=== PATIENT | female | born 1955 | race African-American/Black ===

== ENCOUNTER 2019-01-16 10:11 | Inpatient (IN) | payer OTHER ==
[2019-01-07 12:04] VITALS: BMI 35.1
[~2019-01-16 10:11] MED LIST: CEFAZOLIN 2 GM in DEXTROSE 5%-WATER - 50 ML IVPB ONE; TRANEXAMIC ACID 1000 MG/10 ML VIAL IVPUSH ONE; VANCOMYCIN 1,000 MG in DEXTROSE 5%-WATER - 250 ML IVPB ONE
[2019-01-16] MEDS ORDERED: BUPIVACAINE LIPOSOME/PF (EXPAREL) 266 MG/20 ML VIAL ONE (11:59)
[2019-01-16] MEDS ORDERED: MIDAZOLAM HCL 2 MG/2 ML SINGLE DOSE VIAL ONE ×4 (11:59→15:06)
[2019-01-16] MEDS ORDERED: BUPIVACAINE HCL/PF (5 MG/ML) 30 ML VIAL IJ ONE (11:59)
[2019-01-16] MEDS ORDERED: KETAMINE HCL 200 MG/20 ML VIAL ONE (13:44)
[2019-01-16] MEDS ORDERED: BENZOIN/ALOE VERA/STORAX/TOLU 58 ML BOTTLE ONE (14:22)
[2019-01-16] MEDS ORDERED: ceFAZolin SODIUM 1 GM VIAL ONE (15:25)
[2019-01-16] MEDS ORDERED: ALBUTEROL SO4 8 GM HFA INHALER IH PRN (16:01)
--- NOTE | 2019-01-16 16:01 | PN ---
Progress Note (short form) - Note Progress Note: 63F s/p LEFT total knee replacement POD #0. -Pain control. -DVT PPx: -Chemical: Aspirin 81mg PO BID x 6 weeks post-op. -Mechanical: SATISH's, SCD's. -Incentive spirometry q15 min. -PT/OT/Rehab, OOB. -WBAT LLE. -Post-op Ancef x 2 doses. -f/u post-op TOV: 8 hours max. -f/u AM labs. -f/u drain output. -Diet as tolerated. -Care per medical hospitalist team. -Discharge planning: f/u [facility] [place] Office Monday01/25/2019; call for appointment . -Will follow. Tj Lima MD (Orthopaedic Surgery).
[2019-01-16] MEDS ORDERED: MAG HYDROX/AL HYDROX/SIMETH 30 ML UNIT-DOSE CUP PO PRN (16:02)
[2019-01-16] MEDS ORDERED: MAGNESIUM HYDROX 2400MG/30ML ORAL SUSPENSION 30 ML CUP PO PRN (16:02)
[2019-01-16] MEDS ORDERED: ONDANSETRON 4 MG/2 ML VIAL IVPUSH PRN ×2 (16:02→16:10)
--- NOTE | 2019-01-16 16:07 | OP ---
Operative Note - Note: Operative Date: 01/16/19 Pre-Operative Diagnosis: Left knee DJD in setting of RA Operation: Left TKA Implants: Nitin Triathlon. Femur - 3. Tibia - 4, 50mm stem. Poly - 13mm, TS. Patella - 27mm, symmetric Post-Operative Diagnosis: Same as Pre-op Surgeon: Tj Lima Compliance Specialist: Asher Lima Anesthesiologist/ACCOUNTS RECEIVABLE ANALYST: Harman Ruiz Anesthesia: Spinal Specimens Removed: Bone, soft tissue Estimated Blood Loss (mls): 0 Fluid Volume Replaced (mls): 1,200 (Crystalloid) Operative Report Dictated: Yes
[2019-01-16] MEDS ORDERED: PROMETHAZINE HCL 25 MG/1 ML VIAL IVPUSH PRN (16:10)
[2019-01-16] MEDS ORDERED: HYDROmorphone HCL CARPU-JECT 1 MG/1 ML DISP.SYRIN IVPUSH PRN (16:10)
[2019-01-16] MEDS ORDERED: LACTATED RINGERS SOLUTION 1,000 ML IV SCH ×2 (16:15)
[2019-01-16] MEDS ORDERED: ACETAMINOPHEN INJECTION 100 ML IVPB ONE (16:50)
[2019-01-16] MEDS: ACETAMINOPHEN 1000 MG/100 ML VIAL (NON FORMULARY) IVPB ONE ×2 (16:50→18:25)
--- NOTE | 2019-01-16 18:35 | CONSULT ---
Consultation: REQUESTING PROVIDER: Dr. Tj Lima CONSULT REQUEST: We have been asked to medically evaluate this patient perioperatively. HISTORY OF PRESENT ILLNESS: 63 year-old female with a PMH significant for HTN, Type II NIDDM, now s/p left total knee replacement on 01/[address] Lima. REVIEW OF SYSTEMS: CONSTITUTIONAL: Absent: fever, chills, diaphoresis, generalized weakness, malaise, loss of appetite, weight change HEENT: Absent: rhinorrhea, nasal congestion, throat pain, throat swelling, difficulty swallowing, mouth swelling, ear pain, eye pain, visual changes CARDIOVASCULAR: Absent: chest pain, syncope, palpitations, irregular heart rate, lightheadedness , peripheral edema RESPIRATORY: Absent: cough, shortness of breath, dyspnea with exertion, orthopnea, wheezing, stridor, hemoptysis GASTROINTESTINAL: Absent: abdominal pain, abdominal distension, nausea, vomiting, diarrhea, constipation, melena, hematochezia GENITOURINARY: Absent: dysuria, frequency, urgency, hesitancy, hematuria, flank pain, genital pain MUSCULOSKELETAL: Absent: myalgia, arthralgia, joint swelling, back pain, neck pain SKIN: Absent: rash, itching, pallor HEMATOLOGIC/IMMUNOLOGIC: Absent: easy bleeding, easy bruising, lymphadenopathy, frequent infections ENDOCRINE: Absent: unexplained weight gain, unexplained weight loss, heat intolerance, cold intolerance NEUROLOGIC: Absent: headache, focal weakness or paresthesias, dizziness, unsteady gait, seizure, mental status changes, bladder or bowel incontinence PSYCHIATRIC: Absent: anxiety, depression, suicidal or homicidal ideation, hallucinations. PHYSICAL EXAMINATION Vital Signs - 24 hr 01/16/19 01/16/19 01/16/19 11:05 15:59 16:00 Temperature 98.9 F 97.7 F Pulse Rate 108 H 94 H 91 H Respiratory 20 16 16 Rate Blood Pressure 121/75 118/78 108/64 O2 Sat by Pulse 97 99 98 Oximetry (%) 01/16/19 01/16/19 01/16/19 16:05 16:10 16:15 Temperature Pulse Rate 88 90 88 Respiratory 16 16 16 Rate Blood Pressure 109/61 111/51 L 116/59 L O2 Sat by Pulse 98 97 97 Oximetry (%) 01/16/19 01/16/19 01/16/19 16:30 16:45 17:00 Temperature Pulse Rate 87 84 83 Respiratory 17 16 16 Rate Blood Pressure 115/57 L 112/50 L 115/57 L O2 Sat by Pulse 96 96 97 Oximetry (%) 01/16/19 01/16/19 01/16/19 17:15 17:30 17:45 Temperature Pulse Rate 86 84 83 Respiratory 17 17 18 Rate Blood Pressure 110/59 L 115/56 L 110/59 L O2 Sat by Pulse 96 97 98 Oximetry (%) 01/16/19 17:51 Temperature Pulse Rate 83 Respiratory 18 Rate Blood Pressure 110/59 L O2 Sat by Pulse Oximetry (%) GENERAL: Awake, alert, and fully oriented, in no acute distress. HEAD: Normal with no signs of trauma. EYES: Pupils equal, round and reactive to light, extraocular movements intact, sclera anicteric, conjunctiva clear. No lid lag. EARS, NOSE, THROAT: Ears normal, nares patent, oropharynx clear without exudates. Moist mucous membranes. NECK: Normal range of motion, supple without lymphadenopathy, JVD, or masses. LUNGS: Breath sounds equal, clear to auscultation bilaterally. No wheezes, and no crackles. No accessory muscle use. HEART: Regular rate and rhythm, normal S1 and S2 without murmur, rub or gallop. ABDOMEN: Soft, nontender, not distended, normoactive bowel sounds, no guarding, no rebound, no masses. No hepatomegaly or splenomegaly. MUSCULOSKELETAL: Normal range of motion at all joints. No bony deformities or tenderness. No CVA tenderness. UPPER EXTREMITIES: 2+ pulses, warm, well-perfused. No cyanosis. No clubbing. Cap refill <2 seconds. No peripheral edema. LOWER EXTREMITIES: 2+ pulses, warm, well-perfused. No calf tenderness. No peripheral edema. NEUROLOGICAL: Cranial nerves II-XII intact. Normal speech. Normal gait. PSYCHIATRIC: Cooperative. Good eye contact. Appropriate mood and affect. SKIN: Warm, dry, normal turgor, no rashes or lesions noted. Laboratory Results - last 24 hr 01/16/19 10:56 POC Glucometer 117 Active Medications Generic Name Dose Route Start Last Admin Trade Name Freq PRN Reason Stop Dose Admin Al Hydroxide/Mg Hydroxide 30 ml 01/16/19 16:02 Mylanta Oral Suspension - PO Q4H PRN DYSPEPSIA Albuterol Sulfate 2 puff 01/16/19 16:01 Ventolin Hfa Inhaler - IH Q4H PRN SHORTNESS OF BREATH/WHEEZING Aspirin 81 mg 01/16/19 22:00 Asa - PO BID [facility] Fentanyl 50 mcg 01/16/19 16:10 Sublimaze Injection - IVPUSH [id number] PRN PAIN-PACU ORDER X 4 DOSES ONLY Folic Acid 1 mg 01/17/19 10:00 Folic Acid - PO DAILY [facility] Hydromorphone HCl 0.5 mg 01/16/19 16:10 Dilaudid Injection - IVPUSH [id number] PRN PAIN-PACU ORDER X 4 DOSES ONLY Cefazolin Sodium/Dextrose 2 gm in 50 mls @ 100 mls/hr 01/16/19 22:00 Ancef 2 Gm Premixed Ivpb - IVPB 01/17/19 21:59 Q8H [facility] Lactated Ringer's 1,000 mls @ 125 mls/hr 01/16/19 16:15 01/16/19 18:25 Lactated Ringers Solution IV 01/17/19 06:00 Not Given ASDIR [facility] Lactated Ringer's 1,000 mls @ 125 mls/hr 01/16/19 16:15 01/16/19 18:25 Lactated Ringers Solution IV Not Given ASDIR [facility] Losartan Potassium 50 mg 01/17/19 10:00 Cozaar - PO DAILY [facility] Magnesium Hydroxide 30 ml 01/16/19 16:02 Milk Of Magnesia - PO PRN PRN CONSTIPATION Metformin HCl 500 mg 01/17/19 07:00 Glucophage - PO AM [facility] Ondansetron HCl 4 mg 01/16/19 16:10 Zofran Injection IVPUSH Q6H PRN NAUSEA AND/OR VOMITING Pantoprazole Sodium 40 mg 01/17/19 10:00 Protonix - PO DAILY [facility] Pantoprazole Sodium 40 mg 01/17/19 10:00 Protonix - PO DAILY [facility] Promethazine HCl 12.5 mg 01/16/19 16:10 Phenergan Injection - IVPUSH Q6H PRN NAUSEA-FOR RESCUE AFTER 15 MIN Senna/Docusate Sodium 1 tablet 01/16/19 22:00 Pericolace - PO BID [facility] Triamterene/HCTZ 1 cap 01/17/19 10:00 Dyazide 25/37.5mg PO DAILY [facility] Pre op Hgb 11.3 Intra op Ancef Vanc LR 1200cc ASSESSMENT/PLAN: 63 year-old female with a PMH significant for HTN, Type II NIDDM, now s/p left total knee replacement. Left total knee replacement --POD #1 --perioperative antibiotics per surgery --pain management per surgery --ASA 81mg BID --protonix --bowel regimen --incentive spirometry --Hemovac drain, monitor output --voiding freely Hypertension --continue losartan, triamterene/HCTZ Type II NIDDM --patient self-dc'd metformin 500mg daily about a month ago, she did not like how it made her feel --glucose levels running high --Novolog sliding scale coverage --switch IV fluids to NS --repeat bmp, Mg at 4:00pm FEN Fluids: NS@100mL/hr Electrolytes: replete as indicated Nutrition: diabetic, low sodium DVT prophylaxis: OOB, ambulation, SCDs, TEDs, ASA 81mg BID x 6 weeks Physical therapy Dispo: We will continue to follow the patient. Thank you for this consultative opportunity. Visit type - Emergency Visit Emergency Visit: No - New Patient This patient is new to me today: Yes Date on this admission: 01/17/19 - Critical Care Critical Care patient: No
[2019-01-16] MEDS: SENNOSIDES/DOCUSATE COMBO (SENNA PLUS) TABLET (UD) PO SCH (21:38)
[2019-01-16] MEDS: ASPIRIN 81 MG CHEWABLE TABLETS PO SCH (21:38)
[2019-01-16] MEDS: CEFAZOLIN 2 GM/D5W 2 GM/50 ML ML IVPB SCH (21:47)
[2019-01-16] MEDS: INSULIN SLIDING SCALE (NOVOLOG) 1 VIAL SQ SCH (21:47)
[2019-01-17] MEDS: CEFAZOLIN 2 GM/D5W 2 GM/50 ML ML IVPB SCH ×2 (06:14→14:25)
[2019-01-17] MEDS: INSULIN SLIDING SCALE (NOVOLOG) 1 VIAL SQ SCH ×4 (06:31→22:13)
[2019-01-17] MEDS ORDERED: metFORMIN HCL 500 MG TABLET (FP) PO SCH (07:00)
--- NOTE | 2019-01-17 07:56 | SPA.POSTOP ---
- POST-OP NOTE POD #1 s/p Left TKA No acute events since surgical procedure per RN notes. Patient resting comfortably in chair at bedside. C/o incisional tenderness. Pain management via prn meds. Ice pack in place. Denies n/v/f/c, CP or SOB. Last Vital Signs Temp Pulse Resp BP Pulse Ox 98.2 F 80 19 133/68 98 01/17/19 06:00 01/17/19 06:00 01/17/19 06:00 01/17/19 06:00 01/17/19 06:37 PE General: NAD LE: RLE unremarkable. LLE in full extension. Ice pack in place. Hemeovac 40 mL, on self-suction (sanguinous but starting to thin out). SCD's bilat. No calf tenderness or edema Problem List - Problems (1) Left knee DJD Assessment/Plan: POD #1 s/p Left TKR Con tpain management as ordered DVT PPX 1. ASA 81 mg PO BID x 6 weeks 2. TEDS & SCDs bilat Incentive Spirometer OOB with PT WBAT LLE Monitor & record drain output --> most likely will remove tomorrow while on rounds f/u CBC Case Management for possible Rehab placement --> dc planning 01/18/19 Above plan discussed with Dr. Asher Lima and agrees Code(s): M17.12 - UNILATERAL PRIMARY OSTEOARTHRITIS, LEFT KNEE Visit type - Case Type Case Type: Scheduled - New patient This patient is new to me today: Yes Date on this admission: 01/17/19
[2019-01-17 08:25] LABS: CREATININE 1.3 mg/dl (0.55-1.3)
--- NOTE | 2019-01-17 08:25 | OP ---
DATE OF OPERATION: 01/16/2019 DATE OF DICTATION: 01/16/2019 SURGEON: Tj Lima MD ASSISTANTS: 1. Asher Lima MD 2. Fadi Espinoza PA-C PREOPERATIVE DIAGNOSIS: Rheumatoid/osteoarthritis/destructive arthritis of the left knee. POSTOPERATIVE DIAGNOSIS: Rheumatoid/osteoarthritis/destructive arthritis of the left knee. OPERATION PERFORMED: Left posterior-stabilized total knee arthroplasty (Nitin ). ANESTHESIA: Spinal anesthesia with peripheral nerve block. ANTIBIOTICS GIVEN: Kefzol 2 g and vancomycin 1 g preop, and Kefzol 1 g given at the end of the procedure. Tranexamic acid utilized as well. DESCRIPTION OF PROCEDURE: The patient was correctly identified and brought to the operating room. The left lower extremity was prepped and draped in the routine manner with Betadine scrub solution, wiped off with alcohol, and DuraPrep applied. A free drape was applied. A time-out was called. Imaging was available for intraoperative evaluation. Preoperative assessment of the knee revealed a fixed flexion deformity of about 10 degrees, neutral alignment. A midline incision was utilized. The approach was a subvastus approach. The epimysium was dissected off the muscle. The dissection was taken right down to the linea aspera region, stripping the muscle of the interosseous membrane and enabling easy flexion of the knee. The suprapatellar pouch, which was markedly diseased, was resected. A blunt hammer placed on the undersurface of the vastus muscles enabled easy exposure by shifting the patella laterally. Once this had been performed, the medial soft tissues of the tibia were dissected right around to the back of the tibia. Sharp Hohmann placed with external rotation of the tibia. The knee was dislocated forwards. The patellar cut was made freehand from patellar ligament to quadriceps tendon using an oscillating saw, the appropriate jig for 27-mm patellar button inserted, and the lug hole was appropriately drilled. The tibia was cut to neutral with the extramedullary alignment jig system and the measurement was for a size 4 tibia. A 50-mm stem was inserted for the actual tibia itself because of the poor quality bone bed from the rheumatoid position. The intra-articular content was markedly diseased with synovitis. In fact, the joint fluid drained was a milky white synovitis. This is typical of a rheumatoid knee. The femur was then cut as follows: Starter drill started at just above the posterior cruciate ligament in the infratrochlear groove. The sizing jigs measured a size 3 femur and the joint line was approximated about 2 mm. The appropriate jigs were applied to the distal surface of the femur, bringing about an easy dissection, cutting bone cuts made appropriately. The bone bed required extensive washout to free it of all lipid material. Trialing was size 3 femur, size 4 tibial tray, 27 mm patellar button with a size 13 polyethylene liner. This gave full range of motion on the table. No instability in the coronal or sagittal plane. The appropriate implants were then cemented into position. All extraneous cement was removed. Once the cement had cured, prior to cementing the bone bed was thoroughly lavaged with pulse lavage once again to ensure that loose cement removed. On the back of the tibia cement was placed by ourselves prior to insertion onto the appropriate cemented mantle. The knee was placed through a full range of movement. The sizing was again size 3 femur, size 4 tibial tray with a size 13-mm polyethylene liner for a TS articulation to cut down subluxation and dislocatability. Closure: Quadriceps mechanism 1 Vicryl. Subcutaneous 1 and 2-0 Vicryl. Skin william. A 1/8-inch Hemovac was placed as a drain to the subvastus bed and brought out laterally. Range of movement on the table following the procedure was 0 to 120 degrees with no complications. The operation went extremely well. MD EMMANUEL Avila/[id number] MTDD
[2019-01-17 09:08] LABS: HEMATOCRIT 32.4 % (32.4-45.2); HEMOGLOBIN 10.3 GM/dL (10.7-15.3); MCH 28.7 pg (25.7-33.7); MCHC 31.9 g/dl (32.0-36.0); MEAN PLT VOLUME 8.5 fl (7.5-11.1); PLATELET COUNT 330 K/MM3 (134-434); RDW 13.7 % (11.6-15.6); WHITE BLOOD COUNT 13.1 K/mm3 (4.0-10.0)
[2019-01-17] MEDS ORDERED: PT OWN MED DRAWER 7, Y5N ONE (09:57)
[2019-01-17] MEDS ORDERED: PANTOPRAZOLE 40 MG TABLET (FP) PO SCH (10:00)
[2019-01-17] MEDS: SENNOSIDES/DOCUSATE COMBO (SENNA PLUS) TABLET (UD) PO SCH ×2 (10:08→22:13)
[2019-01-17] MEDS: FOLIC ACID 1 MG TABLET (FP) PO SCH (10:09)
[2019-01-17] MEDS: ASPIRIN 81 MG CHEWABLE TABLETS PO SCH ×2 (10:09→22:13)
[2019-01-17] MEDS: TRIAMTERENE AND HCTZ - 37.5 MG/25 MG CAPSULE PO SCH (10:09)
[2019-01-17] MEDS: PANTOPRAZOLE 40 MG TABLET (FP) PO SCH (10:09)
[2019-01-17] MEDS: LOSARTAN POTASSIUM 50 MG TABLET (FP) PO SCH (10:09)
--- NOTE | 2019-01-17 10:58 | PN ---
Physical Exam: SUBJECTIVE: Patient seen and examined OBJECTIVE: Vital Signs Period Temp Pulse Resp BP Sys/Cedeño Pulse Ox Last 24 Hr 97.7 F-98.9 F 80-108 16-20 108-146/50-78 96-99 GENERAL: The patient is awake, alert, and fully oriented, in no acute distress. HEAD: Normal with no signs of trauma. EYES: PERRL, extraocular movements intact, sclera anicteric, conjunctiva clear. No ptosis. ENT: Ears normal, nares patent, oropharynx clear without exudates, moist mucous membranes. NECK: Trachea midline, full range of motion, supple. LUNGS: Breath sounds equal, clear to auscultation bilaterally, no wheezes, no crackles, no accessory muscle use. HEART: Regular rate and rhythm, S1, S2 without murmur, rub or gallop. ABDOMEN: Soft, nontender, nondistended, normoactive bowel sounds, no guarding, no rebound, no hepatosplenomegaly, no masses. EXTREMITIES: 2+ pulses, warm, well-perfused, no edema. NEUROLOGICAL: Cranial nerves II through XII grossly intact. Normal speech, gait not observed. PSYCH: Normal mood, normal affect. SKIN: Warm, dry, normal turgor, no rashes or lesions noted Laboratory Results - last 24 hr 01/16/19 01/16/19 01/17/19 10:56 21:46 05:40 WBC RBC Hgb Hct MCV MCH MCHC RDW Plt Count MPV Sodium Potassium Chloride Carbon Dioxide Anion Gap BUN Creatinine Est GFR (CKD-EPI)AfAm Est GFR (CKD-EPI)NonAf POC Glucometer 117 306 235 Random Glucose Calcium 01/17/19 01/17/19 07:10 07:10 WBC 13.1 H RBC 3.60 Hgb 10.3 L Hct 32.4 MCV 90.0 MCH 28.7 MCHC 31.9 L RDW 13.7 Plt Count 330 MPV 8.5 Sodium 138 Potassium 4.0 Chloride 103 Carbon Dioxide 17 L Anion Gap 18 H BUN 22 H Creatinine 1.3 Est GFR (CKD-EPI)AfAm 51.28 Est GFR (CKD-EPI)NonAf 44.24 POC Glucometer Random Glucose 249 H Calcium 9.0 Active Medications Generic Name Dose Route Start Last Admin Trade Name Freq PRN Reason Stop Dose Admin Al Hydroxide/Mg Hydroxide 30 ml 01/16/19 16:02 Mylanta Oral Suspension - PO Q4H PRN DYSPEPSIA Albuterol Sulfate 2 puff 01/16/19 16:01 Ventolin Hfa Inhaler - IH Q4H PRN SHORTNESS OF BREATH/WHEEZING Aspirin 81 mg 01/16/19 22:00 01/17/19 10:09 Asa - PO 81 mg BID [facility] Administration Folic Acid 1 mg 01/17/19 10:00 01/17/19 10:09 Folic Acid - PO 1 mg DAILY [facility] Administration Hydromorphone HCl 0.5 mg 01/16/19 16:10 Dilaudid Injection - IVPUSH [id number] PRN PAIN-PACU ORDER X 4 DOSES ONLY Cefazolin Sodium/Dextrose 2 gm in 50 mls @ 100 mls/hr 01/16/19 22:00 06:14 Ancef 2 Gm Premixed Ivpb - IVPB 01/17/19 21:59 100 mls/hr Q8H [facility] Administration Lactated Ringer's 1,000 mls @ 125 mls/hr 01/16/19 16:15 01/16/19 18:25 Lactated Ringers Solution IV Not Given ASDIR [facility] Insulin Aspart 1 vial 01/16/19 22:00 01/17/19 06:31 Novolog Vial Sliding Scale - SQ 4 units ACHS [facility] Administration Protocol Losartan Potassium 50 mg 01/17/19 10:00 01/17/19 10:09 Cozaar - PO 50 mg DAILY [facility] Administration Magnesium Hydroxide 30 ml 01/16/19 16:02 Milk Of Magnesia - PO PRN PRN CONSTIPATION Ondansetron HCl 4 mg 01/16/19 16:10 Zofran Injection IVPUSH Q6H PRN NAUSEA AND/OR VOMITING Pantoprazole Sodium 40 mg 01/17/19 10:00 01/17/19 10:09 Protonix - PO 40 mg DAILY [facility] Administration Senna/Docusate Sodium 1 tablet 01/16/19 22:00 01/17/19 10:08 Pericolace - PO 1 tablet BID [facility] Administration Triamterene/HCTZ 1 cap 01/17/19 10:00 01/17/19 10:09 Dyazide 25/37.5mg PO 1 cap DAILY [facility] Administration ASSESSMENT/PLAN:
[2019-01-17] MEDS: SODIUM CHLORIDE 1,000 ML IV SCH (12:19)
[2019-01-17 16:57] LABS: CALCIUM 8.9 mg/dl (8.5-10); CREATININE 1.3 mg/dl (0.55-1.3); MAGNESIUM 1.6 mg/dL (1.8-2.4); POTASSIUM 3.9 mmol/L (3.5-5.1)
[2019-01-17] MEDS ORDERED: MAGNESIUM SULF 50% (8.12 MEQ/2 ML-1 GM VIAL) IVPB ONE (17:08)
[2019-01-17] MEDS ORDERED: oxyCODONE HCL 5 MG TABLET PO ONE (23:57)
[2019-01-18] MEDS ORDERED: oxyCODONE HCL 5 MG TABLET PO ONE (02:15)
[2019-01-18] MEDS: INSULIN SLIDING SCALE (NOVOLOG) 1 VIAL SQ SCH ×3 (07:32→17:54)
[2019-01-18 07:41] LABS: HEMATOCRIT 30.2 % (32.4-45.2); HEMOGLOBIN 9.6 GM/dl (10.7-15.3); MCH 28.5 pg (25.7-33.7); MCHC 31.8 g/dl (32.0-36.0); MEAN CELL VOLUME 89.4 fl (80-96); MEAN PLT VOLUME 8.3 fl (7.5-11.1); PLATELET COUNT 285 K/MM3 (134-434); RBC 3.38 M/mm3 (3.60-5.2); WHITE BLOOD COUNT 9.5 K/mm3 (4.0-10.8)
[2019-01-18 07:47] LABS: ALBUMIN 2.7 g/dl (3.4-5.0); BILIRUBIN,TOTAL 0.7 mg/dl (0.2-1); CALCIUM 8.6 mg/dl (8.5-10); CREATININE 1.1 mg/dl (0.55-1.3); POTASSIUM 3.3 mmol/L (3.5-5.1); TOT PROT 6.3 g/dl (6.4-8.2)
[2019-01-18] MEDS ORDERED: oxyCODONE HCL 5 MG TABLET PO PRN ×2 (07:57→07:59)
[2019-01-18] MEDS ORDERED: MAGNESIUM SULF 50% (8.12 MEQ/2 ML-1 GM VIAL) IVPB ONE (08:58)
[2019-01-18] MEDS ORDERED: POTASSIUM CHLORIDE TABS 20 MEQ TABLET.ER (FP) PO ONE ×2 (09:00→10:15)
--- NOTE | 2019-01-18 09:08 | PN ---
Progress Note (short form) - Note Progress Note: POD 2, s/p L TKR Pt seen and examined. States she is doing "okay this morning". Reports increased pain last night at midnight as she felt the block wore off. Was given analgesia (Oxycodone) with good effect. Has some pain with ambulation. Tolerating PO, passing flatus. No Bm yet. Voiding without issue. Denies cp/sob, n/v/d, calf pain/edema. Vital Signs Temp 99.2 F 01/18/19 06:00 Pulse 118 H 01/18/19 06:00 Resp 18 01/18/19 06:00 BP 114/72 01/18/19 06:00 Pulse Ox 97 01/18/19 08:20 Intake & Output 01/17/19 01/17/19 01/18/19 11:59 23:59 11:59 Output Total 10 150 100 Balance -10 -150 -100 Output: Drainage 10 150 100 Left Knee 10 150 100 Other: Voiding Method Toilet Toilet Toilet CBC, BMP 01/18/19 07:14 01/18/19 07:14 Gen: awake, alert, nad Resp: Unlabored on RA Ext: LLE with dressing c/d/i. HV in place with scant serosanguinous drainage in reservoir. Thigh/calf with some edema, compartments soft. Neuro: 5/5 DF/PF/EHL/FHL B/L LES, SILT b/l. Bilateral feet warm to touch. A/P: 63 y/o F w/ PMH significant for HTN, Type II NIDDM, now POD 2, s/p L TKR. Doing well overall. Afebrile, VSS. H/H stable. Drain output 100ml overnight -plan for d/c to rehab later today -Discharge instructions reviewed with pt at length, all questions answered. Pt verbalized understanding. -HV will be removed prior to d/c after PT this afternoon d/w attending Dr Lima
[2019-01-18] MEDS ORDERED: MAGNESIUM 1GM/D5W - 1 GM/100 ML IVPB IVPB ONE (09:15)
[2019-01-18] MEDS ORDERED: PT OWN MED DRAWER 7, Y5N ONE ×2 (09:16→17:06)
[2019-01-18] MEDS: PANTOPRAZOLE 40 MG TABLET (FP) PO SCH (09:26)
[2019-01-18] MEDS: LOSARTAN POTASSIUM 50 MG TABLET (FP) PO SCH (09:26)
[2019-01-18] MEDS: TRIAMTERENE AND HCTZ - 37.5 MG/25 MG CAPSULE PO SCH (09:26)
[2019-01-18] MEDS: SENNOSIDES/DOCUSATE COMBO (SENNA PLUS) TABLET (UD) PO SCH (09:26)
[2019-01-18] MEDS: ASPIRIN 81 MG CHEWABLE TABLETS PO SCH (09:27)
[2019-01-18] MEDS: FOLIC ACID 1 MG TABLET (FP) PO SCH (09:27)
--- NOTE | 2019-01-18 10:37 | DS ---
Physical Exam: SUBJECTIVE: Patient seen and examined. States she is doing "okay this morning". Reports increased pain last night at midnight as she felt the block wore off. Was given analgesia (Oxycodone) with good effect. Has some pain with ambulation. Tolerating PO, passing flatus. No Bm yet. Voiding without issue. Denies cp/sob, n/v/d, calf pain/edema. OBJECTIVE: Vital Signs Temp 99.2 F 01/18/19 06:00 Pulse 118 H 01/18/19 06:00 Resp 18 01/18/19 06:00 BP 114/72 01/18/19 06:00 Pulse Ox 97 01/18/19 08:20 Intake & Output 01/17/19 01/17/19 01/18/19 11:59 23:59 11:59 Output Total 10 150 100 Balance -10 -150 -100 Output: Drainage 10 150 100 Left Knee 10 150 100 Other: Voiding Method Toilet Toilet Toilet PHYSICAL EXAM Gen: awake, alert, nad Resp: Unlabored on RA Ext: LLE with dressing c/d/i. HV in place with scant serosanguinous drainage in reservoir. Thigh/calf with some edema, compartments soft. Neuro: 5/5 DF/PF/EHL/FHL B/L LES, SILT b/l. Bilateral feet warm to touch. LABS Laboratory Results - last 24 hr 01/17/19 01/17/19 01/17/19 11:41 16:20 16:39 WBC RBC Hgb Hct MCV MCH MCHC RDW Plt Count MPV Sodium 140 Potassium 3.9 Chloride 104 Carbon Dioxide 22 Anion Gap 14 BUN 26 H Creatinine 1.3 Est GFR (CKD-EPI)AfAm 51.28 Est GFR (CKD-EPI)NonAf 44.24 POC Glucometer 94 110 Random Glucose 127 H Calcium 8.9 Magnesium 1.6 L Total Bilirubin AST ALT Alkaline Phosphatase Total Protein Albumin 01/18/19 01/18/19 01/18/19 07:14 07:14 07:14 WBC 9.5 RBC 3.38 L Hgb 9.6 L Hct 30.2 L MCV 89.4 MCH 28.5 MCHC 31.8 L RDW 13.0 Plt Count 285 MPV 8.3 Sodium 137 Potassium 3.3 L Chloride 106 Carbon Dioxide 21 Anion Gap 10 BUN 28 H Creatinine 1.1 Est GFR (CKD-EPI)AfAm 62.75 Est GFR (CKD-EPI)NonAf 54.14 POC Glucometer Random Glucose 155 H Calcium 8.6 Magnesium 1.7 L Total Bilirubin 0.7 AST 17 ALT 10 L Alkaline Phosphatase 51 Total Protein 6.3 L Albumin 2.7 L 01/18/19 07:27 WBC RBC Hgb Hct MCV MCH MCHC RDW Plt Count MPV Sodium Potassium Chloride Carbon Dioxide Anion Gap BUN Creatinine Est GFR (CKD-EPI)AfAm Est GFR (CKD-EPI)NonAf POC Glucometer 144 Random Glucose Calcium Magnesium Total Bilirubin AST ALT Alkaline Phosphatase Total Protein Albumin HOSPITAL COURSE: The patient was admitted to the Med-Surg Unit after an elective repair of her left knee OA. Now, s/p left TKR. An xray was obtained in the OR and confirmed hardware placement in good position with no fractures or dislocations.The day of surgery, the patient ambulated the hallways with assistance. Narcotic and non -narcotic pain management control was achieved with an oral and IV approach. POD #2, the surgical drain was removed fully intact and without incident. Amirah-operative IV ABX were administered. DVT prophylaxis was achieved with SCDs , aspirin and early ambulation. The patient ambulated with Physical Therapy and rehab was recommended upon discharge. The discharge instructions and an oral pain management plan were reviewed with the patient. All questions answered. Above plan discussed with Dr. Lima and agreed. Date of Admission:01/16/19 Date of Discharge: 01/18/19 Minutes to complete discharge: 30 Discharge Summary Reason For Visit: PRIMARY OSTEOARTHRITIS Current Active Problems Left knee DJD (Acute) - Instructions Diet, Activity, Other Instructions: Dr. Lima Discharge Instructions for Knee Replacement Post Operative Instructions Physical activity Physical Therapist will come to your home for the first 5 days. You will be set up with outpatient PT at your first post-operative visit. Use assistive devices for ambulation at all times. Weight bearing as tolerated on your surgical side. Do not put pillow under knee. May put pillow under heel. Wound care Leave your surgical dressing in place. Do not change the dressing until seen by your surgeon in the office. No baths or showers. Do not submerge your incision. Do not apply any ointments or lotions to your incision. Please call the office if your dressing is soiled/dirty or is falling off. Apply Graduated Compression Stockings (TEDS) to both lower extremities - remove daily for hygiene ONLY. Diet There are no dietary restrictions. Eat healthy, high-fiber foods. Drink 6 to 8 glasses of liquid each day. This will assist in keeping your bowels are regular. Pain management Any pain prescription medication ordered should be taken as prescribed for moderate to severe pain. Do not take additional Tylenol while taking Percocet. Take Aspirin 81 mg two times a day for a total of 6 weeks to prevent blood clots. Call Dr. Lima for any of the following: Severe pain not relieved by medication Fever of 101 or higher Excessive bleeding or drainage on dressing Inability to urinate If you experience chest pain or shortness of breath, please seek emergency care immediately. ISTOP: [phone] Please call the office at to confirm your post-op appointment for the week following surgery. - Home Medications Comprehensive Discharge Medication List: Ambulatory Orders Folic Acid 1 mg PO DAILY 01/07/19 Losartan Potassium [Cozaar -] 50 mg PO DAILY 01/07/19 Prednisone 5 mg PO DAILY 01/07/19 Triamterene/Hydrochlorothiazid [Triamterene-Hctz 37.5-25 mg Cp] 1 each PO DAILY 01/07/19 metFORMIN HCL [Metformin HCl] 500 mg PO DAILY 01/07/19 Albuterol Sulfate Inhaler - 1 - 2 IH PRN PRN 01/16/19 Lansoprazole [Prevacid] 30 mg PO 01/16/19 Aspirin [ASA -] 81 mg PO BID tab.chew 01/18/19 Mag Hydrox/Al Hydrox/Simeth [Mylanta Oral Suspension -] 30 ml PO Q4H PRN cup Magnesium Hydrox 2400MG/30Ml [Milk of Magnesia -] 30 ml PO PRN PRN cup Sennosides/Docusate Sodium [Pericolace -] 1 tablet PO BID tablet 01/18/19 oxyCODONE HCL [Roxicodone -] 5 mg PO Q4H PRN tablet MDD 7 01/18/19 oxyCODONE HCL [Roxicodone -] 10 mg PO Q4H PRN tablet MDD 7 01/18/19 This patient is new to me today: Yes Date on this admission: 01/18/19 Emergency Visit: No Critical Care patient: No - Discharge Referral Referred to [facility] Med [facility] No
[2019-01-18] MEDS: SODIUM CHLORIDE 1,000 ML IV SCH (12:56)
[2019-01-18 14:02] VITALS: BP 100/54; PULSE 103; TEMP 98.8
--- NOTE | 2019-01-18 16:34 | PN ---
Physical Exam: SUBJECTIVE: Patient seen and examined oob to chair. OBJECTIVE: Vital Signs Period Temp Pulse Resp BP Sys/Cedeño Pulse Ox Last 24 Hr 98.2 F-99.2 F 92-118 18-18 100-130/54-72 96-100 GENERAL: The patient is awake, alert, and fully oriented, in no acute distress. LUNGS: Breath sounds equal, clear to auscultation bilaterally, no wheezes, no crackles, no accessory muscle use. HEART: Regular rate and rhythm, S1, S2 ABDOMEN: Soft, nontender, nondistended LLE: Surgical wrappings in place c/d/i; 2+ pulses, warm, well-perfused, motor, sensory intact NEUROLOGICAL: Cranial nerves II through XII grossly intact. Normal speech, gait not observed. Laboratory Results - last 24 hr 01/17/19 01/17/19 01/17/19 16:20 16:39 22:06 WBC RBC Hgb Hct MCV MCH MCHC RDW Plt Count MPV Sodium 140 Potassium 3.9 Chloride 104 Carbon Dioxide 22 Anion Gap 14 BUN 26 H Creatinine 1.3 Est GFR (CKD-EPI)AfAm 51.28 Est GFR (CKD-EPI)NonAf 44.24 POC Glucometer 110 138 Random Glucose 127 H Calcium 8.9 Magnesium 1.6 L Total Bilirubin AST ALT Alkaline Phosphatase Total Protein Albumin 01/18/19 01/18/19 01/18/19 07:14 07:14 07:14 WBC 9.5 RBC 3.38 L Hgb 9.6 L Hct 30.2 L MCV 89.4 MCH 28.5 MCHC 31.8 L RDW 13.0 Plt Count 285 MPV 8.3 Sodium 137 Potassium 3.3 L Chloride 106 Carbon Dioxide 21 Anion Gap 10 BUN 28 H Creatinine 1.1 Est GFR (CKD-EPI)AfAm 62.75 Est GFR (CKD-EPI)NonAf 54.14 POC Glucometer Random Glucose 155 H Calcium 8.6 Magnesium 1.7 L Total Bilirubin 0.7 AST 17 ALT 10 L Alkaline Phosphatase 51 Total Protein 6.3 L Albumin 2.7 L 01/18/19 01/18/19 07:27 11:58 WBC RBC Hgb Hct MCV MCH MCHC RDW Plt Count MPV Sodium Potassium Chloride Carbon Dioxide Anion Gap BUN Creatinine Est GFR (CKD-EPI)AfAm Est GFR (CKD-EPI)NonAf POC Glucometer 144 121 Random Glucose Calcium Magnesium Total Bilirubin AST ALT Alkaline Phosphatase Total Protein Albumin Active Medications Generic Name Dose Route Start Last Admin Trade Name Freq PRN Reason Stop Dose Admin Al Hydroxide/Mg Hydroxide 30 ml 01/16/19 16:02 Mylanta Oral Suspension - PO Q4H PRN DYSPEPSIA Albuterol Sulfate 2 puff 01/16/19 16:01 Ventolin Hfa Inhaler - IH Q4H PRN SHORTNESS OF BREATH/WHEEZING Aspirin 81 mg 01/16/19 22:00 01/18/19 09:27 Asa - PO 81 mg BID [facility] Administration Folic Acid 1 mg 01/17/19 10:00 01/18/19 09:27 Folic Acid - PO 1 mg DAILY [facility] Administration Hydromorphone HCl 0.5 mg 01/16/19 16:10 Dilaudid Injection - IVPUSH [id number] PRN PAIN-PACU ORDER X 4 DOSES ONLY Sodium Chloride 1,000 mls @ 100 mls/hr 01/17/19 11:15 01/18/19 12:56 Normal Saline - IV Not Given [facility] Insulin Aspart 1 vial 01/16/19 22:00 01/18/19 12:54 Novolog Vial Sliding Scale - SQ Not Given [facility] Protocol Losartan Potassium 50 mg 01/17/19 10:00 01/18/19 09:26 Cozaar - PO 50 mg DAILY [facility] Administration Magnesium Hydroxide 30 ml 01/16/19 16:02 Milk Of Magnesia - PO PRN PRN CONSTIPATION Ondansetron HCl 4 mg 01/16/19 16:10 01/18/19 09:25 Zofran Injection IVPUSH 4 mg Q6H PRN Administration NAUSEA AND/OR VOMITING Oxycodone HCl 5 mg 01/18/19 07:57 Roxicodone - PO Q4H PRN PAIN LEVEL 4 - 6 Oxycodone HCl 10 mg 01/18/19 07:59 Roxicodone - PO Q4H PRN PAIN LEVEL 7 - 10 Pantoprazole Sodium 40 mg 01/17/19 10:00 01/18/19 09:26 Protonix - PO 40 mg DAILY [facility] Administration Senna/Docusate Sodium 1 tablet 01/16/19 22:00 01/18/19 09:26 Pericolace - PO 1 tablet BID [facility] Administration Triamterene/HCTZ 1 cap 01/17/19 10:00 01/18/19 09:26 Dyazide 25/37.5mg PO 1 cap DAILY [facility] Administration Pre op Hgb 11.3 Intra op Ancef Vanc LR 1200cc ASSESSMENT/PLAN: 63 year-old female with a PMH significant for HTN, Type II NIDDM, now s/p left total knee replacement. Left total knee replacement --POD #2 --perioperative antibiotics complete --pain management per surgery --ASA 81mg BID --protonix --bowel regimen --incentive spirometry Hypertension --continue losartan, triamterene/HCTZ Type II NIDDM --patient self-dc'd metformin 500mg daily about a month ago, she did not like how it made her feel --glucose levels running high --Novolog sliding scale coverage Hypokalemia Hypomagnesemia --repleted FEN Fluids: PO intake adequate Electrolytes: replete as indicated Nutrition: diabetic, low sodium DVT prophylaxis: OOB, ambulation, SCDs, TEDs, ASA 81mg BID x 6 weeks Visit type - Emergency Visit Emergency Visit: No - New Patient This patient is new to me today: No - Critical Care Critical Care patient: No
--- NOTE | 2019-01-18 20:11 | PN ---
Progress Note (short form) - Note Progress Note: Pulled the patients left knee drain prior to discharge to rehab. Tip intact. Original dressing c/d/i and left in place. Applied 4x4 gauze and LEIA wrap.
--- NOTE | 2019-01-21 17:14 | PATH ---
Surgical Pathology Report Patient Name: JADE COLE Med. Rec. #: [id number] /Age/Gender: 1955 (Age: 63) / F Account: [id number] Location: [facility] MED-SURG Taken: 01/16/2019 Received: 01/16/2019 Reported: 01/21/2019 Physicians: Tj Lima M.D. Specimen(s) Received LEFT KNEE BONES Clinical History Primary osteoarthritis left knee Final Diagnosis LEFT KNEE BONES, RESECTION: DEGENERATIVE JOINT DISEASE, LEFT KNEE. Electronically Signed Payal Marks M.D. Gross Description Received in formalin labeled "left knee bones," is an 11.5 x 9.5 x 2.0 cm aggregate of multiple queen-yellow, irregular portions of bone and soft tissue. The tibial plateau measures 8.3 x 5.5 x 1.7 cm. There are multiple areas of eburnation present, measuring up to 3.3 cm in greatest dimension. The remaining articular surfaces are queen-yellow and focally granular. The underlying trabecular bone is yellow and hard. [employer] sections are submitted in one cassette, following decalcification. /01/18/2019 [facility]01/18/2019
== END 2019-01-18 17:14 | DRG 302 ==
LOC: FM/S 10:11
PROVIDERS: ADMIT Orthopaedic Surgery Orthopaedic Surgery of the Spine; ATTEND Orthopaedic Surgery Orthopaedic Surgery of the Spine
PROC: 0SRD0J9 Replacement of Left Knee Joint with Synthetic Substitute, Cemented, Open Approach (ICD-10-PCS; principal; 2019-01-16 13:52)
DX: M17.12 Unilateral primary osteoarthritis, left knee (principal); M06.862 Other specified rheumatoid arthritis, left knee; I10 Essential (primary) hypertension; E11.9 Type 2 diabetes mellitus without complications; E87.6 Hypokalemia; E83.42 Hypomagnesemia; M65.9 Synovitis and tenosynovitis, unspecified
CPT/HCPCS: 36415; 73560-TC-LT-FY; 80048; 80053; 82962; 83735; 85027; 88304-TC; 88311-TC; 94760; 97116-GP; 97163-GP; J0131; J7030